=== PATIENT | male | born 1960 | race African-American/Black ===

== ENCOUNTER 2017-11-04 18:06 | Emergency (ER) | payer OTHER ==
[~2017-11-04] VITALS: Ht 162.6 cm; Wt 72.6 kg
[~2017-11-04 18:06] MED LIST: ACETAMINOPHEN-1 EAC1 ORAL; AMLODIPINE BESY10 MG ORAL; AMOXICILLIN500 MG ORAL; GABAPENTIN100 MG ORAL; GLUCOPHAGE500 MG PO; IBUPROFEN600 MG ORAL; KEPPRA500 M4 ORAL; LEVETIRACETAM500 MG PO; NKM; NORCO 5-325 TA1 EACH PO; ZOCOR20 M1 ORAL
[2017-11-04 21:13] LABS: APPEARANCE,URINE CLEAR; BILIRUBIN, URINE NEGATIVE (NEGATIVE); COLOR,URINE PALE YELLOW; GLUCOSE, URINE (UA) 1+ (NEGATIVE); KETONES,URINE NEGATIVE (NEGATIVE); LEUKOCYTE ESTERASE ,URINE NEGATIVE (NEGATIVE); NITRITE,URINE NEGATIVE (NEGATIVE); PH,URINE 6 (4.5-8.0); PROTEIN,URINE 3+ (NEGATIVE); UROBILINOGEN,URINE NORMAL MG/DL (0.0-1.0)
[2017-11-04 21:18] LABS: HEMATOCRIT 28.6 % (42.0-52.0); HEMOGLOBIN 8.8 G/DL (14.2-18.0); MEAN CORPUSCULAR VOLUME 90 FL (80-99); PLATELET COUNT 68 K/UL (150-450); RED BLOOD COUNT 3.19 M/UL (4.70-6.10); RED CELL DISTRIBUTION WIDTH 13.9 % (11.6-14.8); WHITE BLOOD COUNT 5.1 K/UL (4.8-10.8)
[2017-11-04 21:21] LABS: LYMPHOCYTES % (AUTO) 12.7 % (20.0-45.0)
[2017-11-04 21:22] LABS: BASOPHILS % (AUTO) 0.6 % (0.0-2.0); MONOCYTES % (AUTO) 8.6 % (1.0-10.0)
[2017-11-04 21:32] LABS: ANION GAP 13 mmol/L (5-15); BLOOD UREA NITROGEN 57 mg/dL (7-18); CALCIUM 6.3 MG/DL (8.5-10.1); CARBON DIOXIDE 20 MMOL/L (21-32); CHLORIDE 99 MMOL/L (98-107); CREATININE 6.1 MG/DL (0.55-1.30); POTASSIUM 4.4 MMOL/L (3.5-5.1); SODIUM 132 MMOL/L (136-145)
[2017-11-04 21:38] LABS: ALANINE AMINOTRANSFERASE 10 U/L (12-78); ALBUMIN 3.7 G/DL (3.4-5.0); ALBUMIN/GLOBULIN RATIO 0.9 (1.0-2.7); ALKALINE PHOSPHATASE 220 U/L (46-116); ASPARTATE AMINO TRANSFERASE 16 U/L (15-37); BILIRUBIN,TOTAL 0.4 MG/DL (0.2-1.0)
[2017-11-04] MEDS ORDERED: ACETAMINOPHEN-1 EAC1 ORAL (21:59)
[2017-11-04 22:30] VITALS: BP 124/76
[2017-11-04 22:36] VITALS: BP 124/76
--- NOTE | 2017-11-05 09:03 | Diagnostic Imaging Report ---
Indication: Reason For Exam: COUGH Technique: One view of the chest Comparison: 10/12/2015 Findings: Small cystic space in the right upper lobe is unchanged. Lungs and pleural spaces are otherwise clear. The heart size is normal. Impression: Stable small cyst or cavity in the right upper lobe No acute process
--- NOTE | 2017-11-05 19:25 | Emergency Room Report ---
History of Present Illness General Chief Complaint: Generalized Weakness Source: Patient Present Illness [facility] The patient is a 56 old male with a history of chronic kidney disease presenting for feeling tired on and off for the past month. He denies any pain. He doesn't do to a cough. He describes this as dry and intermittent. He denies any recent travel or known sick contacts. She denies other symptoms including fever, chills, abd pain, SOB, CP, dizziness, blurred vision, mylagia Allergies: Coded Allergies: No Known Allergies (Verified , 06/25/10) Patient History Past Medical History: see triage record Pertinent Family History: none Reviewed Nursing Documentation: PMH: Agreed, PSxH: Agreed Nursing Documentation-PMH Past Medical History: No Stated History Hx Diabetes: Yes Review of Systems All Other Systems: negative except mentioned in HPI Physical Exam Vital Signs Date Time Temp Pulse Resp B/P (MAP) Pulse Ox O2 Delivery O2 Flow Rate FiO2 11/04/17 18:55 98.4 58 16 117/59 99 Room Air Sp02 EP Interpretation: reviewed, normal General Appearance: no apparent distress, alert, GCS 15, non-toxic Head: normocephalic, atraumatic Eyes: bilateral eye normal inspection, bilateral eye PERRL ENT: hearing grossly normal, normal pharynx, no angioedema, normal voice Neck: full range of motion, supple/symm/no masses Respiratory: chest non-tender, lungs clear, normal breath sounds, no wheezing, speaking full sentences Cardiovascular #1: regular rate, rhythm, no edema Musculoskeletal: back normal, gait/station normal, normal range of motion, non- tender Neurologic: alert, oriented x3, responsive, motor strength/tone normal, sensory intact, speech normal Psychiatric: judgement/insight normal, memory normal, mood/affect normal, no suicidal/homicidal ideation Skin: normal color, no rash, warm/dry, well hydrated Medical Decision Making PA Attestation Dr. Pena is my supervising physician. Patient management was discussed with my supervising physician Diagnostic Impression: Primary Impression: Cough Additional Impression: Chronic renal failure Qualified Codes: N18.9 - Chronic kidney disease, unspecified ER Course The patient is a 56 old male with a history of chronic kidney disease presenting for feeling tired on and off for the past month Differential diagnoses considered but not limited to: CKD, LOKI, anemia, dehydration, bronchitis, pneumonia, among others PE: Afebrile. Vitals are stable. No apparent distress RRR Lungs are clear to auscultation bilaterally Abdomen is soft and nontender No CVA tenderness Skin warm and dry CBC shows anemia which is consistent with previous labs from years ago. CMP shows renal failure Urinalysis not consistent with UTI Chest x-ray unremarkable. No acute findings The patient was informed of these findings and will be discharged home. He will followup with his primary doctor for further care and evaluation. He was given IV fluids and is feeling better. He is discharged with prescription for Tylenol #3. ER precautions given Laboratory Tests Test 11/04/17 20:40 11/04/17 20:45 White Blood Count 5.1 K/UL (4.8-10.8) Red Blood Count 3.19 M/UL (4.70-6.10) L Hemoglobin 8.8 G/DL (14.2-18.0) L Hematocrit 28.6 % (42.0-52.0) L Mean Corpuscular Volume 90 FL (80-99) Mean Corpuscular Hemoglobin 27.7 PG (27.0-31.0) Mean Corpuscular Hemoglobin Concent 30.8 G/DL (32.0-36.0) L Red Cell Distribution Width 13.9 % (11.6-14.8) Platelet Count 68 K/UL (150-450) L Mean Platelet Volume 8.3 FL (6.5-10.1) Neutrophils (%) (Auto) 78.0 % (45.0-75.0) H Lymphocytes (%) (Auto) 12.7 % (20.0-45.0) L Monocytes (%) (Auto) 8.6 % (1.0-10.0) Eosinophils (%) (Auto) 0.0 % (0.0-3.0) Basophils (%) (Auto) 0.6 % (0.0-2.0) Prothrombin Time 10.7 SEC (9.30-11.50) Prothrombin Time INR 1.0 (0.9-1.1) PTT 34 SEC (23-33) H Sodium Level 132 MMOL/L (136-145) L Potassium Level 4.4 MMOL/L (3.5-5.1) Chloride Level 99 MMOL/L (98-107) Carbon Dioxide Level 20 MMOL/L (21-32) L Anion Gap 13 mmol/L (5-15) Blood Urea Nitrogen 57 mg/dL (7-18) H Creatinine 6.1 MG/DL (0.55-1.30) H Estimate Glomerular Filtration Rate 11.6 mL/min (>60) Glucose Level 132 MG/DL (74-106) H Calcium Level 6.3 MG/DL (8.5-10.1) L Total Bilirubin 0.4 MG/DL (0.2-1.0) Aspartate Amino Transferase (AST) 16 U/L (15-37) Alanine Aminotransferase (ALT) 10 U/L (12-78) L Alkaline Phosphatase 220 U/L (46-116) H Troponin I 0.031 ng/mL (0.000-0.056) Total Protein 7.9 G/DL (6.4-8.2) Albumin 3.7 G/DL (3.4-5.0) Globulin 4.2 g/dL Albumin/Globulin Ratio 0.9 (1.0-2.7) L Lipase 122 U/L (73-393) Urine Color Pale yellow Urine Appearance Clear Urine pH 6 (4.5-8.0) Urine Specific [place] 1.015 (1.005-1.035) Urine Protein 3+ (NEGATIVE) H Urine Glucose (UA) 1+ (NEGATIVE) H Urine Ketones Negative (NEGATIVE) Urine Occult Blood 5+ (NEGATIVE) H Urine Nitrite Negative (NEGATIVE) Urine Bilirubin Negative (NEGATIVE) Urine Urobilinogen Normal MG/DL (0.0-1.0) Urine Leukocyte Esterase Negative (NEGATIVE) Urine RBC 10-15 /HPF (0 - 0) H Urine WBC 2-4 /HPF (0 - 0) Urine Squamous Epithelial Cells Few /LPF (NONE/OCC) Urine Bacteria Few /HPF (NONE) Lab Results Impression CBC shows anemia which is consistent with previous labs from years ago. CMP shows renal failure Urinalysis not consistent with UTI Chest X-Ray Diagnostic Results Chest X-Ray Diagnostic Results : Chest X-Ray Ordered: Yes # of Views/Limited/Complete: 1 View Indication: Other - cough EP Interpretation: Yes PA Xray: Interpretation reviewed, by supervising MD, and agrees with findings. Interpretation: no consolidation, no effusion, no pneumothorax, no acute cardiopulmonary disease Impression: No acute disease Electronically Signed by: Kervin Clarke PA-C Last Vital Signs Date Time Temp Pulse Resp B/P (MAP) Pulse Ox O2 Delivery O2 Flow Rate FiO2 11/04/17 22:36 98.4 71 16 124/76 99 Room Air Status: improved Disposition: HOME, SELF-CARE Condition: Improved Scripts Acetaminophen With Codeine (T#3) (TYLENOL #3 TAB*) Y Tab 1 TAB ORAL Q6HR Y for For Pain, #10 TAB Prov: KERVIN CLARKE 11/04/17 Referrals: Tiera BURNETT,REFERRING (PCP) Patient Instructions: Chronic Kidney Disease Additional Instructions: I discussed my findings with the patient. All questions and concerns have been answered. Treatment and medication compliance have been addressed. I advised the patient that they need to follow up with primary doctor within 5 days. Return to ED if symptoms worsen, new symptoms arise, or if needed for any reason. Patient verbalized understanding of discharge instructions. KERVIN CLARKE Nov 05, 2017 19:25
== END 2017-11-04 22:45 | disposition home or self-care (01) ==
LOC: EMR 19:20
DX: R05 Cough (principal); N18.9 Chronic kidney disease, unspecified; E11.9 Type 2 diabetes mellitus without complications
CPT/HCPCS: 36415; 71045; 80053; 81003; 83690; 84484; 85025; 85610; 85730; 96361; 96374; 99284; J2405